=== PATIENT | female | born 1950 | race Caucasian/White ===

== ENCOUNTER 2024-12-31 09:48 | Emergency (ER) | payer BC, MEDICARE, SELFPAY ==
--- NOTE | ~2024-12-31 | XR_ITS ---
Examination: XR chest 1V Clinical History: Weakness Comparison: None Technique: Portable AP Findings: Heart size normal. Lungs clear. No acute bony abnormality. IMPRESSION: 1. No acute cardiopulmonary findings given portable technique. Reviewed, dictated and finalized at location R. OLE CEMENTER MACHINE
--- NOTE | ~2024-12-31 | CT_ITS ---
CT HEAD NON-CONTRAST Clinical History: Hemiparesis Comparison: None Technique: Unenhanced axial images skull base to vertex Coronal, sagittal reformats CT images acquired with automatic exposure control for dose reduction DLP: 681 mGy-cm Findings: Small subdural blood along left tentorium. Age-related atrophy and chronic white matter microvascular ischemic changes. Basal ganglia lacunae. Sulci, ventricles: Unremarkable. No evidence acute territorial infarct. No mass effect, midline shift. Bony calvarium intact. Visualized paranasal sinuses: Wall thickening right maxillary sinus. Mastoid air cells: Clear. IMPRESSION: 1. Small subdural blood along left tentorium. Reviewed, dictated and finalized at location R. AL COORDINATOR
[2024-12-31 09:55] VITALS: BP 126/70; PULSE 66; RESP 20; TEMP 36.5; O2SAT 100
--- NOTE | 2024-12-31 10:09 | ED.FALL ---
HPI - Fall General Chief Complaint: Fall Stated Complaint: Fall 2 days ago, no blood thinners Time Seen by Provider: 12/31/24 10:09 Source: patient and family Mode of arrival: ambulatory Limitations: no limitations History of Present Illness HPI Narrative: 74 years old white female came to the ED from home by private car with her Hospital complaining of upper lip pain after a fall 4 days ago. Patient was behind her at that time, try to avoid timmons falling to the ground, was able to assist her slowly to the ground but patient hit her face on the floor. Complaining of upper lip laceration and pain. Not sure if you blacked out or not, positive alcohol intake at that time. Patient drinks daily. Currently patient denying any headache, neck pain, back pain, chest pain, shortness of breath, abdominal pain or extremity pain. Patient went to urgent care yesterday for upper lip pain and was advised to go to the emergency room for CT scan of the head. Unknown last tetanus shot. Patient denies any fever, chills, nausea, vomiting, weakness, numbness or tingling or focal neuro deficit. History of hypertension hyperlipidemia hypothyroidism, does not smoke cigarette, drink alcohol daily, denies drug use Patient denies any anti-platelet or anticoagulant medications Related Data Allergies Allergy/AdvReac Type Severity Reaction Status Date / Time No Known Allergies Allergy Verified 12/31/24 10:05 Review of Systems Review of Systems: All systems reviewed & are unremarkable except as noted in HPI and below Exam Narrative: General appearance: Well-developed, well-nourished Skin: Normal color, 1 cm laceration, healing upper lip inner side and outer side. No erythema, no discharge, diffusely tender otherwise within normal limit Head: Normocephalic, nontraumatic Eyes: Clear conjunctiva ENT: Oropharynx normal, ears normal, nose normal Neck: Supple, nontender Chest and respiratory: Airway patent, no respiratory distress, no accessory muscle use Heart: Regular rate/rhythm Abdomen: Soft, nontender, no organomegaly, quiet bowel sounds Vascular: Normal peripheral pulses, normal capillary refill. 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, no gross motor deficit Course Vital Signs Vital signs: Vital Signs Temperature 36.5 C 12/31/24 09:55 Pulse Rate 66 12/31/24 09:55 Respiratory Rate 20 12/31/24 09:55 Blood Pressure 126/70 12/31/24 09:55 Pulse Oximetry 100 12/31/24 09:55 Oxygen Delivery Room Air 12/31/24 09:55 Temperature 36.5 C 12/31/24 09:55 Pulse Rate 66 12/31/24 09:55 Respiratory Rate 20 12/31/24 09:55 Blood Pressure 126/70 12/31/24 09:55 Pulse Oximetry 100 12/31/24 09:55 Oxygen Delivery Room Air 12/31/24 09:55 MDM - Fall MDM Narrative Medical decision making narrative: Status post fall 4 days ago, upper lip laceration and pain Vital signs are stable Physical examination consistent with 1 cm laceration upper lip inner side and after side possible through and through, healing, no discharge Differential diagnosis include fall secondary to alcoholism, electrolyte imbalance, dehydration, Blood workup today includes CBC, CMP, troponin, coags showed no significant abnormality Chest x-ray showed no acute abnormality CT head without contrast showed small subdural blood along the left tentorium Dr. Lucio/neurosurgery at [facility] recommends outpatient follow-up 4-6 weeks, patient need to call [phone] [place] [address] The pt was discharged to home.the pt,s condition upon discharge was fair,education was provided to the pt in reference to the final impression,discharge study results,treatment,prognosis and need for follow up . Differential Diagnosis Differential diagnosis: Likely other (As above) Medical Records Attestation: I reviewed the patient's medical records. Lab Data Attestation: I reviewed the patient's lab results. 12/31/24 10:31 12/31/24 10:31 Labs: Lab Results 12/31/24 Range/Units 10:31 WBC 7.3 (4.5-10.0) K/mm3 RBC 3.35 L (4.2-5.4) M/mm3 Hgb 11.2 L (12.0-15.0) g/dL Hct 34.1 L (37.0-47.0) % MCV 101.8 H (80-100) fl MCH 33.4 (26-34) pg MCHC 32.8 (32-36) g/dl RDW 13.2 (11.5-14.5) % Plt Count 243 (150-375) k/mm3 MPV 10.0 (7.4-10.4) fl Immature Gran % (Auto) 0.1 (0-0.5) % Neut % (Auto) 75.3 H (45.5-73.1) % Lymph % (Auto) 15.2 L (18.3-44.2) % [place] % (Auto) 7.6 (2.6-8.5) % Eos % (Auto) 0.8 (0-4.4) % Baso % (Auto) 1.0 (0.2-1.2) % Lymph # (Auto) 1.10 (0.9-3.2) K/mm3 [place] # (Auto) 0.6 (0.1-0.6) K/mm3 Eos # (Auto) 0.1 (0-0.3) K/mm3 Baso # (Auto) 0.1 (0.0-0.1) K/mm3 Abs Immat Gran (auto) 0.01 (0.00-0.031) K/mm3 Absolute Neuts (auto) 5.5 (1.3-6.7) K/mm3 Absolute Nucleated RBC 0.000 (0.0-0.012) K/mm3 Nucleated RBC % 0.0 (0.0-0.2) % PT 14.2 (11.1-14.7) Seconds INR 1.1 APTT 26.9 (22.3-36.8) Seconds Sodium 138 (137-145) mmol/L Potassium 3.9 (3.4-5.0) mmol/L Chloride 107 (98-107) mmol/L Carbon Dioxide 24 (22-30) mmol/L Anion Gap 7 (4-12) mmol/L BUN 15 (7-17) mg/dL Creatinine 0.75 (0.7-1.0) mg/dL Estim Creat Clear Calc 47 ml/min Estimated GFR > 60 (59 - ) Glucose 110 (65-110) mg/dL Calcium 9.1 (8.4-10.2) mg/dL Total Bilirubin 0.6 (0.2-1.3) mg/dL AST 24 (14-36) U/L ALT 19 (6-35) U/L Alkaline Phosphatase 61 (38-126) U/L Troponin I Pending Total Protein 7.5 (6.3-8.2) g/dL Albumin 3.9 (3.5-5.1) g/dL Imaging Data Radiologist's impression: Impressions Head CT 12/31/24 11:02 IMPRESSION: 1. Small subdural blood along left tentorium. Chest X-Ray 12/31/24 11:08 IMPRESSION: 1. No acute cardiopulmonary findings given portable technique. Critical Care Time Critical Care Time Critical Care Time: No Discharge Plan Discharge Clinical Impression: Fall, Intracranial bleed, Infected laceration Patient Disposition: Home Condition: Stable Instructions: Intracerebral Hemorrhage (DC), Fall Prevention (ED), Facial Laceration (ED) Additional Instructions: Return if symptoms are worsening , call your family physician for appointment, take Tylenol as as needed for aches and pain, continue home medications. Call the neurosurgeon at [facility] at [phone] for appointment to be seen within 4-6 weeks for intracranial bleed follow-up The address is [address] [place] [address], [address] floor, [facility], [address] Patient Language: Iranian Prescriptions: New amoxicillin-pot clavulanate [Augmentin] 500-125 mg tablet 1 tablet PO Q8H Qty: 21 0RF Follow-up/Referrals: Eriberto,Lloyd Chavez MD [Primary Care Provider, Unknown] Quality Stroke Scale Stroke Scale 1: Stroke scale date:: 12/31/24 1a Level of consciousness: alert-0 1b Level of consciousness questions: answers both correctly-0 1c Level of consciousness commands: obeys both correctly-0 2 Best gaze: normal-0 3 Visual: no visual loss-0 4 Facial palsy: normal-0 5a Motor: left arm: no drift-0 5b Motor: right arm: no drift-0 6a Motor: left leg: no drift-0 6b Motor: right leg: no drift-0 7 Limb ataxia: absent-0 8 Sensory: normal-0 9 Best language: no aphasia-0 10 Dysarthria: normal-0 11 Extinction and inattention: no abnormality-0 Level:: 0
--- NOTE | 2024-12-31 10:11 | ECG_ITS ---
Test Date: 2024-12-31 10:20:08 Measurements Intervals [place] Rate: 64 P: 66 VA: 202 QRS: -40 QRSD: 96 T: 29 QT: 396 QTc: 411 Interpretive Statements SINUS RHYTHM LOW QRS VOLTAGE IN PRECORDIAL LEADS PATTERN CONSISTENT WITH PULMONARY DISEASE Electronically Signed On 12-31-2024 10:56:00 AUDIOLOGY DOCTOR by Buck Lowry D.O
[2024-12-31 10:36] LABS: Hematocrit 34.1 % (37.0-47.0); Hemoglobin 11.2 g/dL (12.0-15.0); Immature Granulocyte Percent A 0.1 % (0-0.5); Lymphocytes Absolute Auto 1.10 K/mm3 (0.9-3.2); Mean Corpuscular HGB Conc 32.8 g/dl (32-36); Mean Corpuscular Hemoglobin 33.4 pg (26-34); Mean Corpuscular Volume 101.8 fl (80-100); Nucleated Red Blood Cells Absolute Auto 0.000 K/mm3 (0.0-0.012); Nucleated Red Blood Cells Perc 0.0 % (0.0-0.2); Platelet Count Result 243 k/mm3 (150-375); Red Blood Count 3.35 M/mm3 (4.2-5.4); White Blood Count 7.3 K/mm3 (4.5-10.0)
[2024-12-31 10:46] LABS: INR 1.1; Prothrombin Time 14.2 Seconds (11.1-14.7)
[2024-12-31 10:47] LABS: Partial Thromboplastin Time 26.9 Seconds (22.3-36.8)
[2024-12-31 11:08] LABS: Alanine Aminotransferase 19 U/L (6-35); Albumin Level 3.9 g/dL (3.5-5.1); Alkaline Phosphatase 61 U/L (38-126); Anion Gap 7 mmol/L (4-12); Aspartate Amino Transferase 24 U/L (14-36); Bilirubin,Total 0.6 mg/dL (0.2-1.3); Blood Urea Nitrogen 15 mg/dL (7-17); Calcium 9.1 mg/dL (8.4-10.2); Carbon Dioxide 24 mmol/L (22-30); Chloride 107 mmol/L (98-107); Estimated CRCL calculation 47 ml/min; Estimated Glomerular Filt Rate > 60; Glucose 110 mg/dL (65-110); Potassium 3.9 mmol/L (3.4-5.0); Sodium 138 mmol/L (137-145); Total Protein 7.5 g/dL (6.3-8.2)
[2024-12-31 11:16] LABS: Troponin I < 0.012 ng/mL (0.000-0.034)
--- NOTE | 2024-12-31 11:45 | ED_ITS ---
HPI - Fall General Chief Complaint: Fall Stated Complaint: Fall 2 days ago, no blood thinners Time Seen by Provider: 12/31/24 10:09 Source: patient and family Mode of arrival: ambulatory Related Data Allergies Allergy/AdvReac Type Severity Reaction Status Date / Time No Known Allergies Allergy Verified 12/31/24 10:05 Course Vital Signs Vital signs: Vital Signs Temperature 36.5 C 12/31/24 09:55 Pulse Rate 66 12/31/24 09:55 Respiratory Rate 20 12/31/24 09:55 Blood Pressure 126/70 12/31/24 09:55 Pulse Oximetry 100 12/31/24 09:55 Oxygen Delivery Room Air 12/31/24 09:55 Temperature 36.5 C 12/31/24 09:55 Pulse Rate 66 12/31/24 09:55 Respiratory Rate 20 12/31/24 09:55 Blood Pressure 126/70 12/31/24 09:55 Pulse Oximetry 100 12/31/24 09:55 Oxygen Delivery Room Air 12/31/24 09:55 MDM - Fall Lab Data 12/31/24 10:31 12/31/24 10:31 Labs: Lab Results 12/31/24 Range/Units 10:31 WBC 7.3 (4.5-10.0) K/mm3 RBC 3.35 L (4.2-5.4) M/mm3 Hgb 11.2 L (12.0-15.0) g/dL Hct 34.1 L (37.0-47.0) % MCV 101.8 H (80-100) fl MCH 33.4 (26-34) pg MCHC 32.8 (32-36) g/dl RDW 13.2 (11.5-14.5) % Plt Count 243 (150-375) k/mm3 MPV 10.0 (7.4-10.4) fl Immature Gran % (Auto) 0.1 (0-0.5) % Neut % (Auto) 75.3 H (45.5-73.1) % Lymph % (Auto) 15.2 L (18.3-44.2) % [place] % (Auto) 7.6 (2.6-8.5) % Eos % (Auto) 0.8 (0-4.4) % Baso % (Auto) 1.0 (0.2-1.2) % Lymph # (Auto) 1.10 (0.9-3.2) K/mm3 [place] # (Auto) 0.6 (0.1-0.6) K/mm3 Eos # (Auto) 0.1 (0-0.3) K/mm3 Baso # (Auto) 0.1 (0.0-0.1) K/mm3 Abs Immat Gran (auto) 0.01 (0.00-0.031) K/mm3 Absolute Neuts (auto) 5.5 (1.3-6.7) K/mm3 Absolute Nucleated RBC 0.000 (0.0-0.012) K/mm3 Nucleated RBC % 0.0 (0.0-0.2) % PT 14.2 (11.1-14.7) Seconds INR 1.1 APTT 26.9 (22.3-36.8) Seconds Sodium 138 (137-145) mmol/L Potassium 3.9 (3.4-5.0) mmol/L Chloride 107 (98-107) mmol/L Carbon Dioxide 24 (22-30) mmol/L Anion Gap 7 (4-12) mmol/L BUN 15 (7-17) mg/dL Creatinine 0.75 (0.7-1.0) mg/dL Estim Creat Clear Calc 47 ml/min Estimated GFR > 60 (59 - ) Glucose 110 (65-110) mg/dL Calcium 9.1 (8.4-10.2) mg/dL Total Bilirubin 0.6 (0.2-1.3) mg/dL AST 24 (14-36) U/L ALT 19 (6-35) U/L Alkaline Phosphatase 61 (38-126) U/L Troponin I < 0.012 (0.000-0.034) ng/mL Total Protein 7.5 (6.3-8.2) g/dL Albumin 3.9 (3.5-5.1) g/dL Discharge Plan Discharge Clinical Impression: Fall, Intracranial bleed, Infected laceration Patient Disposition: Home Condition: Stable Instructions: Intracerebral Hemorrhage (DC), Fall Prevention (ED), Facial Laceration (ED) Additional Instructions: Return if symptoms are worsening , call your family physician for appointment, take Tylenol as as needed for aches and pain, continue home medications. Call the neurosurgeon at [facility] at [phone] for appointment to be seen within 4-6 weeks for intracranial bleed follow-up The address is [address] [place] [address], 1st floor, [facility], [address] Patient Language: Czech Prescriptions: New amoxicillin-pot clavulanate [Augmentin] 500-125 mg tablet 1 tablet PO Q8H Qty: 21 0RF Follow-up/Referrals: Eriberto,Lloyd Chavez MD [Primary Care Provider, Unknown]
[2024-12-31] MEDS: TETANUS,DIPHTHERIA,AC PERTUSSIS ADULT (0.5 ML) BOOSTRIX IM (12:13)
[2024-12-31 12:18] VITALS: BP 119/75; PULSE 61; RESP 18; O2SAT 100
== END 2024-12-31 12:21 | disposition home or self-care (01) ==
PROVIDERS: Emergency Provider Emergency Medicine; PCP Internal Medicine Endocrinology, Diabetes & Metabolism
DX: S06.5XAA Traumatic subdural hemorrhage with loss of consciousness status unknown, initial encounter (principal); S01.511A Laceration without foreign body of lip, initial encounter; L08.9 Local infection of the skin and subcutaneous tissue, unspecified; Z23 Encounter for immunization; I10 Essential (primary) hypertension; E78.5 Hyperlipidemia, unspecified; E03.9 Hypothyroidism, unspecified; W18.30XA Fall on same level, unspecified, initial encounter
CPT/HCPCS: 36415; 70450; 71045; 80053; 84484; 85025; 85610; 85730; 90471; 90715; 93005; 99284